=== PATIENT | female | born 1985 | race African-American/Black ===

== ENCOUNTER → 2017-05-14 | Emergency (ER) | payer OTHER ==
[~2017-05-14] VITALS: Ht 162.6 cm; Wt 75.8 kg
[~2017-05-14] MED LIST: AMBIEN 5 MG TABL5 M1 PO; ATIVAN1 MG PO; BACTRIM DS TAB1 EACH PO; DIFLUCAN150 MG PO; FLEXERIL PO; HYDROCODONE-AP1 EAC6 PO; IBUPROFEN 600600 M1 PO; KEFLEX500 MG PO; NORCO 5-325 TA1 EACH PO; NUVARING VAGIN1 EACH VAG; PROZAC40 MG PO; SKELAXIN 800 M800 MG PO; TRAMADOL 50 MG50 MG PO; TRAZODONE HCL100 MG PO; ULTRAM 50MG TAB50 MG PO; WELLBUTRIN XL300 MG PO
--- NOTE | ~2017-05-14 | EKG ---
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 : 1985 Requested By: Annie Gu Order Number: [id number] MD: Don Burton Measurements Intervals [place] Rate: 72 P: 46 AL: 111 QRS: 73 QRSD: 77 T: 44 QT: 407 QTc: 446 Interpretive Statements Sinus rhythm Borderline short AL interval Nonspecific ST segment abnormality Compared to ECG 08/01/2010 05:24:16 Right-axis deviation no longer present Electronically Signed On 05-15-2017 7:22:28 EXTRACTIONS TECHNICIAN by Don Burton [email or web address] <ELECTRONICALLY SIGNED> By: Don Burton MD, [facility] 05/15/17 0722 [id number] Don Burton MD, FACC /EPI
[2017-05-14 19:28] LABS: AMP/METHAMP Negative (Negative); BARBITURATES Negative (Negative); BENZODIAZEPINES Negative (Negative); COCAINE Negative (Negative); METHADONE Negative (Negative); OPIATES Negative (Negative); PCP Negative (Negative)
[2017-05-14 19:46] LABS: HEMATOCRIT 34.8 % (37.0-47.0); HEMOGLOBIN 11.6 gm/dL (12.0-15.0); MCH 30.7 pg (26.0-34.0); MCHC 33.4 g/dL (28.0-37.0); MCV 92.1 fL (80.0-100.0); RBC 3.77 mil/uL (4.20-5.00); RDW 13.2 % (10.5-14.5); WBC 12.2 thou/uL (4.0-11.0)
[2017-05-14 20:02] LABS: ANION GAP 10 mmol/L (7-16); BUN 8 mg/dL (7-18); CALCIUM 8.9 mg/dL (8.5-10.1); CHLORIDE 105 mmol/L (98-107); CO2 25 mmol/L (21-32); GLUCOSE 99 mg/dL (74-106); POTASSIUM 3.3 mmol/L (3.5-5.1); SALICYLATE < 2.8 mg/dL (2.8-20.0); SODIUM 140 mmol/L (136-145)
== END ==
LOC: ER 19:00
PROVIDERS: Emergency Medicine
DX: T39.1X2A Poisoning by 4-Aminophenol derivatives, intentional self-harm, initial encounter (principal); Y92.9 Unspecified place or not applicable; F32.9 Major depressive disorder, single episode, unspecified; F41.9 Anxiety disorder, unspecified

== ENCOUNTER 2017-09-06 08:16 | Emergency (ER) | payer OTHER ==
[~2017-09-06] VITALS: Ht 162.6 cm; Wt 78.5 kg
[~2017-09-06 08:16] MED LIST changes: -AMBIEN 5 MG TABL5 M1 PO; -IBUPROFEN 600600 M1 PO
[2017-09-06] MEDS ORDERED: AMBIEN 5 MG TABL5 M1 PO (08:24)
[2017-09-06] MEDS ORDERED: IBUPROFEN 600600 M1 PO (09:50)
[2017-09-06] MEDS ORDERED: FLEXERIL PO (09:54)
[2017-09-06 09:56] VITALS: BP 116/80
== END 2017-09-06 10:02 | disposition home or self-care (01) ==
LOC: ER 08:16
DX: M25.551 Pain in right hip (principal); M25.552 Pain in left hip; M54.9 Dorsalgia, unspecified; M25.511 Pain in right shoulder; V89.2XXA Person injured in unspecified motor-vehicle accident, traffic, initial encounter; Y93.89 Activity, other specified; Y92.89 Other specified places as the place of occurrence of the external cause; Y99.8 Other external cause status

== ENCOUNTER 2018-09-09 08:55 | Emergency (ER) | payer BC ==
[~2018-09-09] VITALS: Ht 160 cm; Wt 78.0 kg
[~2018-09-09 08:55] MED LIST changes: +AMBIEN 5 MG TABL5 M1 PO; +IBUPROFEN 600600 M1 PO
[2018-09-09 09:35] LABS: ABSOLUTE NEUTROPHILS 8.7 thou/uL (1.4-8.2); BASOPHILS 0.4 % (0.0-2.0); EOSINOPHILS 0.6 % (0.0-3.0); HEMATOCRIT 36.9 % (37.0-47.0); LYMPHOCYTES 26.1 % (24.0-44.0); MCH 30.1 pg (26.0-34.0); MCHC 32.4 g/dL (28.0-37.0); MCV 92.9 fL (80.0-100.0); MONOCYTES 8.7 % (1.0-8.0); PLATELET COUNT 285 thou/uL (150-400); POLYS 64.2 % (36.0-66.0); RBC 3.97 mil/uL (4.20-5.00); RDW 13.9 % (10.5-14.5); WBC 13.6 thou/uL (4.0-11.0)
[2018-09-09 09:38] LABS: ANION GAP 8 mmol/L (7-16); BUN 5 mg/dL (7-18); CALCIUM 8.9 mg/dL (8.5-10.1); CHLORIDE 104 mmol/L (98-107); CO2 27 mmol/L (21-32); CREATININE 0.9 mg/dL (0.6-1.0); GLUCOSE 89 mg/dL (74-106); POTASSIUM 3.6 mmol/L (3.5-5.1); SODIUM 139 mmol/L (136-145)
[2018-09-09 09:47] LABS: TROPONIN-I <0.06 ng/mL (<0.06)
--- NOTE | 2018-09-09 09:56 | EKG ---
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: ANTWANLoyd : 1985 Requested By: Richard Betancourt Order Number: [id number] MD: Don Burton Measurements Intervals [place] Rate: 67 P: 30 ND: 120 QRS: 69 QRSD: 76 T: 44 QT: 407 QTc: 430 Interpretive Statements Sinus rhythm Normal tracing Compared to ECG 05/14/2017 19:17:24 No significant change was found Electronically Signed On 09-09-2018 9:56:42 CDT by Don Burton [email or web address] ��������������������������������������������� <ELECTRONICALLY SIGNED> ���������������������������������������� By: Don Burton MD, [facility] ��������������������������������������������� 09/09/18 [phone] Don Burton MD, FACC /EPI
[2018-09-09 10:58] VITALS: BP 120/51
== END 2018-09-09 10:59 | disposition home or self-care (01) ==
LOC: ER 08:55
PROVIDERS: Emergency Medicine
DX: R07.89 Other chest pain (principal)

== ENCOUNTER 2019-11-21 10:42 | Emergency (ER) | payer BC ==
[~2019-11-21] VITALS: Ht 162.6 cm; Wt 78.9 kg
[2019-11-21 11:17] LABS: ABSOLUTE NEUTROPHILS 3.6 thou/uL (1.4-8.2); BASOPHILS 0.7 % (0.0-2.0); EOSINOPHILS 1.1 % (0.0-3.0); HEMATOCRIT 35.5 % (37.0-47.0); HEMOGLOBIN 11.8 gm/dL (12.0-15.0); LYMPHOCYTES 41.2 % (24.0-44.0); MCH 31.3 pg (26.0-34.0); MCHC 33.3 g/dL (28.0-37.0); MCV 94.2 fL (80.0-100.0); MONOCYTES 9.8 % (1.0-8.0); PLATELET COUNT 286 thou/uL (150-400); POLYS 47.2 % (36.0-66.0); RBC 3.77 mil/uL (4.20-5.00); RDW 12.9 % (10.5-14.5); WBC 7.6 thou/uL (4.0-11.0)
[2019-11-21 11:24] LABS: ANION GAP 9 mmol/L (7-16); BUN 5 mg/dL (7-18); CALCIUM 8.4 mg/dL (8.5-10.1); CHLORIDE 104 mmol/L (98-107); CO2 27 mmol/L (21-32); CREATININE 0.9 mg/dL (0.6-1.0); GLUCOSE 77 mg/dL (74-106); POTASSIUM 3.2 mmol/L (3.5-5.1); SODIUM 140 mmol/L (136-145)
[2019-11-21 11:39] LABS: ALBUMIN 3.2 g/dL (3.4-5.0); SGOT 15 U/L (15-37); SGPT 14 U/L (30-65); TOTAL BILIRUBIN 0.3 mg/dL (0.2-1.0); TOTAL PROTEIN 7.9 g/dL (6.4-8.2); TROPONIN-I <0.06 ng/mL (<0.06)
[2019-11-21] MEDS ORDERED: NORFLEX100 MG PO (11:52)
[2019-11-21] MEDS ORDERED: PREDNISONE 10 M10 MG PO (11:52)
--- NOTE | 2019-11-21 11:54 | EKG ---
[facility] [address] ELECTROCARDIOGRAM REPORT Name: DAMIAN EDWARDS Room #: REG [facility]#: [id number] Admission: 11/21/19 Attend Phys: Discharge: Date of : 87 Report #: [id number] THIS REPORT FOR: cc: Madeline Scott K. Steven DO Santiago, Patrick MD [facility] ~ THIS REPORT FOR: //name// [facility] ED Test Date: 2019-11-21 Test Time: 10:53:44 Pat Name: DAMIAN EDWARDS Department: Room: Gender: F Energy Technician: NANI : 1985 Requested By: Emelina Le Order Number: [id number] MD: Ahmet Roman Measurements Intervals [place] Rate: 87 P: 46 PA: 129 QRS: 69 QRSD: 78 T: 1 QT: 364 QTc: 438 Interpretive Statements Sinus rhythm Borderline T wave abnormalities Compared to ECG 09/09/2018 08:59:21 T-wave abnormality now present Electronically Signed On 11-21-2019 11:53:50 CDT by Ahmet Roman [email or web address] <ELECTRONICALLY SIGNED> By: Ahmet Roman MD, FACC 11/21/19 1153 1053 1053 Ahmet Roman MD, [facility] /EPI
[2019-11-21 11:59] VITALS: BP 107/61
== END 2019-11-21 12:00 | disposition home or self-care (01) ==
LOC: ER 10:42
PROVIDERS: Emergency Medicine
DX: M54.12 Radiculopathy, cervical region (principal); R07.89 Other chest pain; Z79.899 Other long term (current) drug therapy

== ENCOUNTER 2019-11-30 09:19 | Emergency (ER) | payer BC ==
[~2019-11-30] VITALS: Ht 162.6 cm; Wt 79.4 kg
[~2019-11-30 09:19] MED LIST changes: +NORFLEX100 MG PO; +PREDNISONE 10 M10 MG PO
[2019-11-30] MEDS ORDERED: CLONAZEPAM 0.50.5 M1 PO (09:33)
[2019-11-30] MEDS ORDERED: BRINTELLIX10 MG PO (09:34)
[2019-11-30] MEDS ORDERED: ELURYNG VAGINA1 EACH (09:34)
[2019-11-30 09:57] LABS: BASOPHILS 0.3 % (0.0-2.0); EOSINOPHILS 0.9 % (0.0-3.0); HEMATOCRIT 37.1 % (37.0-47.0); HEMOGLOBIN 12.3 gm/dL (12.0-15.0); LYMPHOCYTES 21.4 % (24.0-44.0); MCH 30.7 pg (26.0-34.0); MCHC 33.2 g/dL (28.0-37.0); MCV 92.5 fL (80.0-100.0); MONOCYTES 6.8 % (1.0-8.0); PLATELET COUNT 304 thou/uL (150-400); POLYS 70.6 % (36.0-66.0); RBC 4.01 mil/uL (4.20-5.00); WBC 12.7 thou/uL (4.0-11.0)
[2019-11-30 10:00] LABS: CALCIUM 8.9 mg/dL (8.5-10.1); CREATININE 0.9 mg/dL (0.6-1.0); POTASSIUM 3.7 mmol/L (3.5-5.1)
[2019-11-30 10:06] LABS: ALBUMIN 3.2 g/dL (3.4-5.0); TOTAL BILIRUBIN 0.6 mg/dL (0.2-1.0); TOTAL PROTEIN 8.2 g/dL (6.4-8.2)
[2019-11-30 10:54] LABS: URINE BLOOD TRACE (Negative); URINE CLARITY CLEAR; URINE COLOR YELLOW; URINE GLUCOSE-RANDOM* NEGATIVE (Negative); URINE KETONES 3+ (Negative); URINE LEUKOCYTES-REFLEX TRACE (Negative); URINE NITRITE-REFLEX NEGATIVE (Negative); URINE PROTEIN (DIPSTICK) 1+ (Negative); URINE SPECIFIC GRAVITY >= 1.030 (1.005-1.035); URINE UROBILINOGEN 0.2 E.U./dl (0.2-1.0)
[2019-11-30 11:03] LABS: ICTOTEST (BILI CONFIRMATORY) Negative (Negative); URINE BILIRUBIN NEGATIVE (Negative)
[2019-11-30 11:15] LABS: CASTS None Seen /LPF (None Seen); MUCUS >6 Heavy strn/LPF (None Seen); SQUAMOUS 4-10 Moderate /LPF (0-3); URINE WBC-REFLEX 6-15 Few /HPF (0-5)
[2019-11-30 11:16] LABS: BACTERIA-REFLEX >30 Many /HPF (None Seen); CRYSTALS None Seen /LPF (None Seen); URINE RBC 0-2 Rare /HPF (0-2)
[2019-11-30] MEDS ORDERED: CIPROFLOXACIN500 M1 PO (13:02)
[2019-11-30] MEDS ORDERED: FLAGYL500 M1 PO (13:02)
[2019-11-30 13:05] VITALS: BP 111/77
[2019-11-30] MEDS ORDERED: NORCO 5-325 TA1 EAC2 PO (13:08)
== END 2019-11-30 13:05 | disposition home or self-care (01) ==
LOC: ER 09:19
PROVIDERS: Emergency Medicine
DX: K52.9 Noninfective gastroenteritis and colitis, unspecified (principal); J45.909 Unspecified asthma, uncomplicated; Z79.899 Other long term (current) drug therapy

== ENCOUNTER 2020-02-05 13:36 | Emergency (ER) | payer BC ==
[~2020-02-05] VITALS: Ht 162.6 cm; Wt 77.1 kg
[~2020-02-05 13:36] MED LIST changes: +BRINTELLIX10 MG PO; +CIPROFLOXACIN500 M1 PO; +CLONAZEPAM 0.50.5 M1 PO; +ELURYNG VAGINA1 EACH; +FLAGYL500 M1 PO; +NORCO 5-325 TA1 EAC2 PO
[2020-02-05 14:27] LABS: URINE BILIRUBIN NEGATIVE (Negative); URINE BLOOD NEGATIVE (Negative); URINE CLARITY CLEAR; URINE COLOR YELLOW; URINE GLUCOSE-RANDOM* NEGATIVE (Negative); URINE KETONES NEGATIVE (Negative); URINE LEUKOCYTES-REFLEX NEGATIVE (Negative); URINE NITRITE-REFLEX NEGATIVE (Negative); URINE PROTEIN (DIPSTICK) NEGATIVE (Negative); URINE SPECIFIC GRAVITY 1.015 (1.005-1.035); URINE UROBILINOGEN 0.2 E.U./dl (0.2-1.0)
[2020-02-05 14:34] LABS: ABSOLUTE NEUTROPHILS 4.9 thou/uL (1.4-8.2); BASOPHILS 0.5 % (0.0-2.0); EOSINOPHILS 0.7 % (0.0-3.0); HEMATOCRIT 37.9 % (37.0-47.0); HEMOGLOBIN 12.6 gm/dL (12.0-15.0); LYMPHOCYTES 30.3 % (24.0-44.0); MCHC 33.3 g/dL (28.0-37.0); MCV 93.1 fL (80.0-100.0); MONOCYTES 8.1 % (1.0-8.0); PLATELET COUNT 289 thou/uL (150-400); POLYS 60.4 % (36.0-66.0); RBC 4.07 mil/uL (4.20-5.00); RDW 13.2 % (10.5-14.5)
[2020-02-05 14:42] LABS: CALCIUM 9.3 mg/dL (8.5-10.1); CREATININE 1.1 mg/dL (0.6-1.0); POTASSIUM 4.2 mmol/L (3.5-5.1)
[2020-02-05 14:48] LABS: ALBUMIN 3.4 g/dL (3.4-5.0); TOTAL BILIRUBIN 0.5 mg/dL (0.2-1.0); TOTAL PROTEIN 8.5 g/dL (6.4-8.2)
[2020-02-05] MEDS ORDERED: AUGMENTIN 875-1 EACH PO (18:02)
[2020-02-05 18:56] VITALS: BP 112/72
== END 2020-02-05 18:57 | disposition home or self-care (01) ==
LOC: ER 13:36
PROVIDERS: Emergency Medicine
DX: K52.9 Noninfective gastroenteritis and colitis, unspecified (principal); R42 Dizziness and giddiness; N89.8 Other specified noninflammatory disorders of vagina; F32.9 Major depressive disorder, single episode, unspecified; F41.9 Anxiety disorder, unspecified; J45.909 Unspecified asthma, uncomplicated; Z79.899 Other long term (current) drug therapy; Z79.2 Long term (current) use of antibiotics

== ENCOUNTER 2020-03-22 04:40 | Emergency (ER) | payer BC ==
[~2020-03-22] VITALS: Ht 162.6 cm; Wt 74.8 kg
[~2020-03-22 04:40] MED LIST changes: +AUGMENTIN 875-1 EACH PO
[2020-03-22] MEDS ORDERED: INDOMETHACIN 5050 M1 PO (05:04)
[2020-03-22] MEDS ORDERED: DESYREL150 MG PO (05:04)
[2020-03-22] MEDS ORDERED: PEPCID40 MG PO (05:05)
[2020-03-22 05:36] LABS: ABSOLUTE NEUTROPHILS 13.5 thou/uL (1.4-8.2); BASOPHILS 0.3 % (0.0-2.0); EOSINOPHILS 0.2 % (0.0-3.0); HEMATOCRIT 37.2 % (37.0-47.0); HEMOGLOBIN 12.1 gm/dL (12.0-15.0); LYMPHOCYTES 11.9 % (24.0-44.0); MCH 30.5 pg (26.0-34.0); MCHC 32.6 g/dL (28.0-37.0); MCV 93.5 fL (80.0-100.0); MONOCYTES 6.1 % (1.0-8.0); PLATELET COUNT 292 thou/uL (150-400); POLYS 81.5 % (36.0-66.0); RBC 3.97 mil/uL (4.20-5.00); RDW 13.1 % (10.5-14.5); WBC 16.6 thou/uL (4.0-11.0)
[2020-03-22 06:00] LABS: CALCIUM 9.5 mg/dL (8.5-10.1); POTASSIUM 3.4 mmol/L (3.5-5.1)
[2020-03-22 06:07] LABS: ALBUMIN 3.6 g/dL (3.4-5.0); TOTAL BILIRUBIN 0.5 mg/dL (0.2-1.0)
--- NOTE | 2020-03-22 07:27 | EKG ---
[place] [address] [facility] [address] [place] [address] ELECTROCARDIOGRAM REPORT Name: DAMIAN EDWARDS Room #: REG López#: [id number] Admission: 03/22/20 Attend Phys: Discharge: Date of : 87 Report #: [id number] [facility] ED Test Date: 2020-03-22 Test Time: 04:45:41 Pat Name: DAMIAN EDWARDS Department: Room: Gender: F Treasury Specialist: SATISH : 1985 Requested By: Tacho Junior Order Number: [id number] MD: Don Burton Measurements Intervals [place] Rate: 72 P: 54 [place]: 126 QRS: 77 QRSD: 80 T: 21 QT: 419 QTc: 459 Interpretive Statements Sinus rhythm Nonspecific ST and T wave abnormality Compared to ECG 11/21/2019 10:53:44 No significant changes Electronically Signed On 03-22-2020 7:26:57 PASTEURISER OPERATOR by Don Burton [email or web address] <ELECTRONICALLY SIGNED> By: Don Burton MD, [facility] 03/22/20 0726 0445 0445 Don Burton MD, FACC /EPI
[2020-03-22] MEDS ORDERED: PEPCID20 MG PO (09:58)
[2020-03-22] MEDS ORDERED: NORCO 5-325 TA1 EAC2 PO (09:58)
[2020-03-22] MEDS ORDERED: AZITHROMYCIN 2250 MG PO (09:58)
[2020-03-22 10:00] VITALS: BP 115/76
== END 2020-03-22 10:08 | disposition home or self-care (01) ==
LOC: ER 04:40
PROVIDERS: Emergency Medicine
DX: R10.13 Epigastric pain (principal); J45.909 Unspecified asthma, uncomplicated; Z79.899 Other long term (current) drug therapy

== ENCOUNTER 2020-04-15 00:48 | Emergency (ER) | payer BC ==
[~2020-04-15] VITALS: Ht 162.6 cm; Wt 74.4 kg
[~2020-04-15 00:48] MED LIST changes: +AZITHROMYCIN 2250 MG PO; +DESYREL150 MG PO; +INDOMETHACIN 5050 M1 PO; +PEPCID20 MG PO; +PEPCID40 MG PO
[2020-04-15] MEDS ORDERED: OMEPRAZOLE40 MG PO (00:57)
[2020-04-15] MEDS ORDERED: FAMOTIDINE 20 M20 MG PO (00:58)
[2020-04-15 02:17] LABS: URINE BILIRUBIN NEGATIVE (Negative); URINE BLOOD NEGATIVE (Negative); URINE CLARITY CLEAR; URINE COLOR YELLOW; URINE GLUCOSE-RANDOM* NEGATIVE (Negative); URINE KETONES TRACE (Negative); URINE LEUKOCYTES-REFLEX NEGATIVE (Negative); URINE NITRITE-REFLEX NEGATIVE (Negative); URINE PROTEIN (DIPSTICK) NEGATIVE (Negative); URINE SPECIFIC GRAVITY 1.015 (1.005-1.035); URINE UROBILINOGEN 0.2 E.U./dl (0.2-1.0)
[2020-04-15 02:19] LABS: ABSOLUTE NEUTROPHILS 3.7 thou/uL (1.4-8.2); BASOPHILS 0.5 % (0.0-2.0); CALCIUM 9.1 mg/dL (8.5-10.1); CREATININE 0.9 mg/dL (0.6-1.0); EOSINOPHILS 1.1 % (0.0-3.0); HEMATOCRIT 35.7 % (37.0-47.0); HEMOGLOBIN 11.7 gm/dL (12.0-15.0); LYMPHOCYTES 45.5 % (24.0-44.0); MCH 30.4 pg (26.0-34.0); MCHC 32.7 g/dL (28.0-37.0); MCV 92.8 fL (80.0-100.0); MONOCYTES 6.8 % (1.0-8.0); PLATELET COUNT 267 thou/uL (150-400); POLYS 46.1 % (36.0-66.0); POTASSIUM 3.6 mmol/L (3.5-5.1); RBC 3.85 mil/uL (4.20-5.00); RDW 12.6 % (10.5-14.5); WBC 8.1 thou/uL (4.0-11.0)
[2020-04-15 02:25] LABS: ALBUMIN 3.2 g/dL (3.4-5.0); TOTAL BILIRUBIN 0.3 mg/dL (0.2-1.0); TOTAL PROTEIN 7.5 g/dL (6.4-8.2)
[2020-04-15] MEDS ORDERED: BENTYL 10 MG CA10 MG PO (03:36)
[2020-04-15] MEDS ORDERED: ZOFRAN ODT4 MG PO (03:36)
[2020-04-15 03:45] VITALS: BP 116/57
--- NOTE | 2020-04-15 07:17 | EKG ---
[address] [place] [address] ELECTROCARDIOGRAM REPORT Name: DAMIAN EDWARDS Room #: DEP López#: [id number] Admission: 04/15/20 Attend Phys: Discharge: 04/15/20 Date of : 87 Report #: [id number] [facility] ED Test Date: 2020-04-15 Test Time: 01:31:39 Pat Name: DAMIAN EDWARDS Department: Room: Gender: F Electric Meter Repairer: shan : 1985 Requested By: Fran Reis Order Number: [id number] MD: Ahmet Roman Measurements Intervals [place] Rate: 69 P: 53 RI: 125 QRS: 72 QRSD: 87 T: 57 QT: 444 QTc: 476 Interpretive Statements Sinus rhythm Compared to ECG 03/22/2020 04:45:41 ST (T wave) deviation no longer present Electronically Signed On 04-15-2020 7:17:20 MANAGER CODE by Ahmet Roman [email or web address] <ELECTRONICALLY SIGNED> By: Ahmet Roman MD, [facility] 04/15/20 0717 013 0131 Ahmet Roman MD, FACC /EPI
== END 2020-04-15 03:50 | disposition home or self-care (01) ==
LOC: ER 00:48
PROVIDERS: Emergency Medicine
DX: R10.13 Epigastric pain (principal); R11.0 Nausea; R53.83 Other fatigue; F32.9 Major depressive disorder, single episode, unspecified; F41.9 Anxiety disorder, unspecified; K21.9 Gastro-esophageal reflux disease without esophagitis; J45.909 Unspecified asthma, uncomplicated; Z79.899 Other long term (current) drug therapy

== ENCOUNTER 2020-04-19 19:48 | Emergency (ER) | payer BC ==
[~2020-04-19] VITALS: Ht 162.6 cm; Wt 74.8 kg
[~2020-04-19 19:48] MED LIST changes: +BENTYL 10 MG CA10 MG PO; +FAMOTIDINE 20 M20 MG PO; +OMEPRAZOLE40 MG PO; +ZOFRAN ODT4 MG PO
[2020-04-19 20:19] LABS: URINE BILIRUBIN NEGATIVE (Negative); URINE BLOOD 3+ (Negative); URINE COLOR YELLOW; URINE GLUCOSE-RANDOM* NEGATIVE (Negative); URINE KETONES NEGATIVE (Negative); URINE LEUKOCYTES-REFLEX NEGATIVE (Negative); URINE NITRITE-REFLEX NEGATIVE (Negative); URINE PROTEIN (DIPSTICK) TRACE (Negative); URINE SPECIFIC GRAVITY 1.025 (1.005-1.035)
[2020-04-19 20:20] LABS: URINE CLARITY HAZY
[2020-04-19 20:22] LABS: BACTERIA-REFLEX >30 Many /HPF (None Seen); CASTS None Seen /LPF (None Seen); CRYSTALS None Seen /LPF (None Seen); SQUAMOUS 0-3 Few /LPF (0-3); URINE RBC >20 Many /HPF (0-2); URINE WBC-REFLEX 0-5 Rare /HPF (0-5)
[2020-04-19 20:50] LABS: ABSOLUTE NEUTROPHILS 3.4 thou/uL (1.4-8.2); BASOPHILS 0.5 % (0.0-2.0); EOSINOPHILS 1.3 % (0.0-3.0); HEMATOCRIT 36.3 % (37.0-47.0); HEMOGLOBIN 11.9 gm/dL (12.0-15.0); LYMPHOCYTES 37.2 % (24.0-44.0); MCH 30.5 pg (26.0-34.0); MCHC 32.7 g/dL (28.0-37.0); MCV 93.3 fL (80.0-100.0); MONOCYTES 7.4 % (1.0-8.0); PLATELET COUNT 272 thou/uL (150-400); POLYS 53.6 % (36.0-66.0); RBC 3.89 mil/uL (4.20-5.00); RDW 12.8 % (10.5-14.5); WBC 6.3 thou/uL (4.0-11.0)
[2020-04-19 20:53] LABS: ANION GAP 9 mmol/L (7-16); BUN 4 mg/dL (7-18); CALCIUM 8.7 mg/dL (8.5-10.1); CHLORIDE 104 mmol/L (98-107); CO2 25 mmol/L (21-32); GLUCOSE 113 mg/dL (74-106); POTASSIUM 3.8 mmol/L (3.5-5.1); SODIUM 138 mmol/L (136-145)
[2020-04-19 20:59] LABS: ALBUMIN 3.4 g/dL (3.4-5.0); DIRECT BILIRUBIN < 0.1 mg/dL (<0.1-0.2); LIPASE 122 U/L (73-393); SGOT 16 U/L (15-37); SGPT 18 U/L (30-65); TOTAL BILIRUBIN 0.5 mg/dL (0.2-1.0); TOTAL PROTEIN 7.9 g/dL (6.4-8.2)
[2020-04-19] MEDS ORDERED: CARAFATE 1 GM TA1 G1 PO (21:33)
[2020-04-19 21:39] VITALS: BP 121/75
== END 2020-04-19 21:39 | disposition home or self-care (01) ==
LOC: ER 19:48
PROVIDERS: Nurse Practitioner
DX: K59.00 Constipation, unspecified (principal); R11.0 Nausea; R10.84 Generalized abdominal pain; J45.909 Unspecified asthma, uncomplicated; Z79.899 Other long term (current) drug therapy